=== PATIENT | female | born 1975 | race Caucasian/White ===

== ENCOUNTER → 2017-06-05 15:31 | Outpatient (CLI) | payer BC, SELFPAY ==
--- NOTE | 2017-06-05 15:33 | HPBI_ITS ---
MAMMOGRAPHY - BILATERAL SCREENING REASON FOR EXAM: Female, 42 years old. Routine annual screening examination. PERTINENT HISTORY: Mother with breast cancer. Aunt with breast cancer. TECHNIQUE: Digital bilateral breast manoj (3D mammographic acquisition) in the CC and MLO projections. 2-D mediolateral oblique (MLO) and craniocaudad (CC) views of both breasts were obtained. CAD: Full Field Digital Mammography with Computer Added Detection was performed. COMPARISON: Comparison is made with prior study dated March 17, 2016 and March 05, 2015. FINDINGS: Breast Composition: The breasts are extremely dense, which lowers the sensitivity of mammography. There are no dominant masses or suspicious calcifications. No other significant abnormalities are identified. There has been no significant change since the prior study. HPBI/SCREENING MAMM (CAD), BILAT IMPRESSION: Stable bilateral screening mammogram. Yearly follow-up mammogram recommended. (A) ASSESSMENT CATEGORY: BIRADS Category 1: Negative. A letter regarding these results will be sent to the patient by the facility within 30 days. Approximately 10% of breast cancers are not detected by mammography. A normal mammogram should not delay biopsy of a clinically suspicious abnormality. [id number] Electronically Signed: Keshawn Feldman MD at 8:06 EST Tel [phone], Service support ,
== END ==
PROVIDERS: Family Provider Family Medicine; PCP Family Medicine; Visit Provider Obstetrics & Gynecology
DX: Z12.31 Encounter for screening mammogram for malignant neoplasm of breast (principal)
CPT/HCPCS: 77063; 77067

== ENCOUNTER → 2017-06-05 16:43 | Outpatient (CLI) | payer BC, SELFPAY ==
[2017-06-08 15:53] LABS: HPV Reflexed? NOT INDICATED
== END ==
PROVIDERS: Visit Provider Obstetrics & Gynecology
DX: Z12.4 Encounter for screening for malignant neoplasm of cervix (principal)
CPT/HCPCS: 88175; G0145

== ENCOUNTER → 2018-06-11 13:24 | Outpatient (CLI) | payer BC, SELFPAY ==
[2018-06-13 17:14] LABS: HPV Reflexed? NOT INDICATED
== END ==
PROVIDERS: Visit Provider Obstetrics & Gynecology
DX: Z12.4 Encounter for screening for malignant neoplasm of cervix (principal)
CPT/HCPCS: 88175; G0145

== ENCOUNTER → 2018-07-02 16:17 | Outpatient (CLI) | payer BC, SELFPAY ==
--- NOTE | 2018-07-02 16:22 | BI_ITS ---
MAMMOGRAPHY - BILATERAL SCREENING 3-D MAYA SYNTHESIS REASON FOR EXAM: Female, 43 years old. Bilateral Screening 3-D tomosynthesis PERTINENT HISTORY: Family history of breast cancer in mother and maternal aunt.. TECHNIQUE: 2-D mammograms and 3-D Maya synthesis of the breast (s) were performed. CAD was performed. COMPARISON: June 05, 2017, March 17, 2016 FINDINGS: The breast composition is heterogeneously dense that can obscure small breast masses. Scattered benign calcifications are seen. No dense spiculated masses or suspicious microcalcifications are identified. No architectural distortion is identified. There is no skin thickening or retraction. There has been no significant change since the prior study. BI/SCREENING MAMM (CAD), BILAT IMPRESSION: No mammographic signs of malignancy. Routine yearly mammograms recommended. ASSESSMENT CATEGORY: BIRADS Category 1: Negative. A letter regarding these results will be sent to the patient by the facility within 30 days. FOLLOW UP RECOMMENDATION: Yearly follow up mammogram recommended. (A) Approximately 10% of breast cancers are not detected by mammography. A normal mammogram should not delay biopsy of a clinically suspicious abnormality. Electronically Signed: Harvinder Teixeira MD at 17:42 EDT , Service support ,
== END ==
PROVIDERS: Family Provider Family Medicine; PCP Family Medicine; Referring Provider Obstetrics & Gynecology; Visit Provider Obstetrics & Gynecology
DX: Z12.31 Encounter for screening mammogram for malignant neoplasm of breast (principal)
CPT/HCPCS: 77063; 77067

== ENCOUNTER → 2018-08-31 | Outpatient (CLI) | payer BC, SELFPAY ==
--- NOTE | 2018-08-31 11:35 | RAD_ITS ---
STUDY: X-RAY - LUMBAR SPINE REASON FOR EXAM: Female, 43 years old. Left-sided back pain radiating to the thigh TECHNIQUE: 5 view(s) of the lumbar spine were obtained. COMPARISON: None FINDINGS: Normal lumbar lordosis. There is a levoscoliosis of the lumbar spine. There is a normal alignment of the vertebrae. Normal vertebral bodies and endplates. Mild loss of disc space at L3-L4, L4-L5 and L5-S1. There is no demonstrated fracture. There is no demonstrated spondylolysis of the pars interarticulares. Calcification projects over the right renal shadow suggesting nephrolithiasis. RAD/L/S Spine Min 4 Views IMPRESSION: 1. Mild degenerative disc disease. 2. Right nephrolithiasis Electronically Signed: Tucker Sams MD at 11:31 EDT , Service support ,
== END | disposition home or self-care (01) ==
LOC: MTRAD 11:34
PROVIDERS: Family Provider Family Medicine; PCP Family Medicine; Referring Provider Family Medicine; Visit Provider Family Medicine
DX: M51.16 Intervertebral disc disorders with radiculopathy, lumbar region (principal)
CPT/HCPCS: 72110

== ENCOUNTER 2018-10-04 10:30 | Outpatient (RCR) | payer BC, SELFPAY ==
--- NOTE | 2018-09-05 11:28 | HP.PTEVAL_ITS ---
Patient's Visit Information FATUMA LUNSFORD is a 43 year old F referred to Physical Therapy by Paul Kinsey MD with a diagnosis of Lumbar spine pain. Date of Evaluation: 09/03/18 Physical Therapist: Jesús Morrow DPT - Visit Plan Frequency: 2x /Week Duration: 4 Weeks Plan: Start with REIL progression as tolerated, Possible need for joint mobs with REIL. Add in TA contraction progression in netural spine. May use DN or US. - Subjective Findings: Pt. is here today for her initial evaluation with diagnosis of low back pain. Pt. reprots having increased pain since mar 2018. Pt. reports no mechanism of injury. Pt. reports increased pain at times, but not all the time. Pt. reports increased pain that does radiating into her L thigh at times. She deneis N/T in either LE. 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 Pt. reports no pain with sleeping. Has intermittent increase in symptoms. Pt. is hopeful to reduce symptoms in order to get back to all recreational activities without issues. - Pain L side of lumbar spine Pain Intensity (Out of 10): 3 Pain Intensity Range: 1, 7 - Objective POSTURE: Pt. has slight flexed posture, rounded shoulders, but is able to self correct. PALPATION: Pt. has mild pain at L3-L5, and at L side of SI joint. Mild hypomobility at same segments. NEURO: Pt. has normal sensation of BLEs. Pt. has 2+ bilateral achilles and patellar DTR. ROM: Lumbar ROM: flexion- min loss increase NW, ext- min loss increase NW, SB/rotation- nil loss NE. Hip- ER/IR normal Rom, tight HS and tight hip flexors bilaterally. MMT: Normal throughout, except 4/5 hip abd, 4/5 hip ext and 4/5 hip flexion. COre strength- poor+. GAIT: Pt. ambulates with slight flexed posture, but otherwise normal pattern. - Special Tests L/S Slump test left side: Negative L/S Slump test right side: Negative L/S Left Straight Leg Raise: Negative L/S Right Straight Leg Raise: Negative Lumbar Standing: Flexion - Mechanical Response: No effect Lumbar Standing: Flexion - Symptoms During Testing: No effect Lumbar Standing: Flexion - Symptoms After Testing: No effect Lumbar Standing: Extension - Mechanical Response: Increases motion Lumbar Standing: Extension - Symptoms During Testing: No effect Lumbar Standing: Extension - Symptoms After Testing: No effect - Goals Goal 1:: Pt. to be I with HEP Goal Time Frame: 4-6 Weeks Goal 2:: Pt. to have increased lumabr ROM by 25% in all effected directions without increase in symptoms. Goal Time Frame: 4-6 Weeks Goal 3:: Pt. to complete full workday without increase in symptoms. Goal Time Frame: 4-6 Weeks Goal 4:: Pt. to have increased hip and core strength by 1/2 grade of all effected musculature. Goal Time Frame: 4-6 Weeks Goal 5:: Pt. to sit for upto 30 minutes withotu increase in symptoms. Goal Time Frame: 4-6 Weeks - Rehabilitation Potential Physical Therapy Diagnosis: Pt. has signs and symptoms consistent with low back pain. Pt. reports having some radicular symptoms, but were not reporduced this date. Pt. does have limited lumbar extension both in standing and prone. Pt. has pain at L PSIS region. Pt. did not have any radicular symptoms this date, but reports having them after work. Pt. would benefit from PT to increase her ROM, decrease symptoms and increased core strength. Rehabilitation Potential: Excellent - Anticipated Interventions Patient/Client Instruction: Educate patient on: Condition, Plan of Care, Risk Factors, Benefits of Fitness Program For the Purpose of:: To foster healthy habits, To improve decision making, To facilitate caregiver knowledge, To improve self management, To prevent re- injury, To improve ability to perform tasks related to life management, To im prove tolerance to ADL's Therapeutic Exercise to Include: Strength training, Power training, Endurance training, Postural training, Flexibilty training, Passive ROM, Active ROM, Dynamic Lumbar Stabilization, Addis Exercises For the Purpose of:: To decrease pain, To decrease swelling/inflammation, To increase ROM, To increase oxygenation perfusion, To improve muscle performance and motor function, To increase tolerance to activity/condition/position, To improve health of tissue, To decrease soft tissue restriction, To increase flexibility/ROM, To improve balance, To improve safety with gait Manual Therapy Techniques to Include: Mobilization, Passive ROM, Functional dry needling, Soft tissue mobilization For the Purpose of:: To decrease pain, To decrease swelling/inflammation, To increase ROM, To improve health of tissue, To decrease soft tissue restriction, To increase flexibility/ROM Ultrasound (thermal/non thermal): Yes For the Purpose of:: To decrease pain, To decrease swelling/inflammation, To increase ROM Thank you for the opportunity to evaluate your patient. For Medicare and Medicare HMO plans, please review the plan of care and approve it. It will need to be FAXED BACK to us at [phone] for Medicare purposes. For Medicare only, by signing this I certify the plan of care. Please let me know if there are questions or concerns regarding this plan of care. Physician Signature: Date:
--- NOTE | 2018-10-01 06:51 | HP.PTREVAL_ITS ---
Paul Kinsey MD, It has been my pleasure to treat FATUMA LUNSFORD over the last 9 visits for Lumbar spine pain. Please see the progress note below for an update on the physical therapy plan of care! Subjective: Pt. reports I am feeling a bit better, but still after a long day, my back spasms.. Pt. reports being 70% better overall. Objective/Function: Pt. continues to struggle with muscle control of pelvis, but is improving. Cont. to work on lumbar core stability and muscle control of pelvic stabilizors. Plan Plan: COnt. with x2 per week for 2-3 weeks. Focus on core stability and muscle control. May use modaltiies to reduce symptoms. Goals Goal 1:: Pt. to be I with HEP Goal Time Frame: 4-6 Weeks Goal Progress: Progressing Goal 2:: Pt. to have increased lumabr ROM by 25% in all effected directions without increase in symptoms. Goal Time Frame: 4-6 Weeks Goal Progress: Progressing Goal 3:: Pt. to complete full workday without increase in symptoms. Goal Time Frame: 4-6 Weeks Goal 4:: Pt. to have increased hip and core strength by 1/2 grade of all effected musculature. Goal Time Frame: 4-6 Weeks Goal Progress: Progressing Goal 5:: Pt. to sit for upto 30 minutes withotu increase in symptoms. Goal Time Frame: 4-6 Weeks Goal Progress: Progressing Anticipated Interventions Patient/Client Instruction: Educate patient on: Condition, Plan of Care, Risk Factors, Benefits of Fitness Program For the Purpose of:: To foster healthy habits, To improve decision making, To facilitate caregiver knowledge, To improve self management, To prevent re- injury, To improve ability to perform tasks related to life management, To improve tolerance to ADL's Therapeutic Exercise to Include: Strength training, Power training, Endurance training, Postural training, Flexibilty training, Passive ROM, Active ROM, Dynamic Lumbar Stabilization, Addis Exercises For the Purpose of:: To decrease pain, To decrease swelling/inflammation, To increase ROM, To increase oxygenation perfusion, To improve muscle performance and motor function, To increase tolerance to activity/condition/position, To improve health of tissue, To decrease soft tissue restriction, To increase flexibility/ROM, To improve balance, To improve safety with gait Manual Therapy Techniques to Include: Mobilization, Passive ROM, Functional dry needling, Soft tissue mobilization For the Purpose of:: To decrease pain, To decrease swelling/inflammation, To increase ROM, To improve health of tissue, To decrease soft tissue restriction, To increase flexibility/ROM Ultrasound (thermal/non thermal): Yes For the Purpose of:: To decrease pain, To decrease swelling/inflammation, To increase ROM Please do not hesitate to contact me at [phone] by phone or if you have questions or concerns regarding this new plan of care! Sincerely, NORMA ReedT
== END 2018-10-04 19:00 | disposition home or self-care (01) ==
LOC: PT 10:30
PROVIDERS: Family Provider Family Medicine; PCP Family Medicine; Referring Provider Family Medicine; Visit Provider Family Medicine
DX: M62.830 Muscle spasm of back (principal); M51.16 Intervertebral disc disorders with radiculopathy, lumbar region
CPT/HCPCS: 97035; 97110; 97161

== ENCOUNTER 2018-11-30 16:38 | Emergency (ER) | payer BC, SELFPAY ==
[2018-11-30 16:39] VITALS: BP 129/77; PULSE 76; RESP 17; TEMP 36.4; O2SAT 98; BMI 19.3
--- NOTE | 2018-11-30 17:07 | ED.VISSUMM ---
- ER Visit Summary Date of Service: 11/30/18 Chief Complaint: Paresthesias History of Present Illness: The patient is a 43 F who presents with paresthesias in her upper and lower extremities that have been getting worse over the past few days. Patient states she was recently started on prednisone for her back. Patient states she has tingling in her upper and lower extremities. Patient states she feels drained all over. Patient states nothing makes it better or worse. Patient denies any bowel or bladder changes. Patient denies any saddle anesthesia. Patient admits to generalized myalgias and arthralgias. Physical Examination: Vital signs are stable. Patient is afebrile. Patient is in no acute distress. Oral mucosa is pink and moist. Neck is supple. Trachea is midline. There is no JVD noted. Heart was regular rate and rhythm. Lungs are clear and equal bilaterally. Abdomen is soft and nontender. Cranial nerves II through XII are intact. Strength is 5/5 bilaterally upper and lower extremities. There are no sensory deficits noted. There is good range of motion in all extremities. There is no edema noted. Test Results: CBC and basic metabolic profile were obtained and were essentially within normal limits. Glucose was 156. Emergency Department Course and Treatment: Patient was advised that this may be a side effect of the prednisone. Patient was instructed to follow-up with her primary care physician in 3 to 5 days. Patient understood and was agreeable with the plan. All questions were answered. Disposition: Discharge home Impression: Paresthesias This note was generated with [employer] dictation software. It may contain incorrect words, spelling, and punctuation that were not noted in review of the chart prior to signing ED Disposition - Plan for ED Patient: Disposition: Home or Assisted Living Diagnosis: Paresthesias Instructions: Paraesthesias Referrals: Paul Kinsey MD [Primary Care Provider] - 3-5 Days
[2018-11-30] MEDS: 0.9% Normal Saline 1,000 ML 1000 ML IV (17:19)
[2018-11-30 17:36] LABS: Absolute Lymphocyte Count 0.84 X10^3/uL (0.83-4.51); Absolute Neutrophil Count 6.7 X10^3/uL (2.0-7.7); Basophil# 0.04 X10^3/uL; Basophil% 0.5 % (0-1); Eosinophil# 0.15 X10^3/uL; Eosinophils% 1.9 % (0-5); Hematocrit 40.6 % (37-47); Hemoglobin 13.4 g/dL (12.0-15.0); Lymphocyte # 0.84 X10^3/ul (4.0); Lymphocyte % 10.6 % (19-41); Mean Corpuscular Volume 96.9 fL (81-99); Mean Platelet Vol. 9.8 fl (6.2-12.0); Monocyte# 0.21 X10^3/uL; Monocyte% 2.6 % (0-10); NRBC Flagged by Analyzer 0 % (0-5); Neutrophil # 6.69 X10^3/uL (2.7-7.7); Neutrophil % 84.1 % (47-70); POSITIVE MORPHOLOGY YES; Platelet Count 247 K/mm3 (150-450); RBC Distribution Width CV 12.5 % (11.6-14.6); Red Blood Count 4.19 M/mm3 (4.2-5.4)
[2018-11-30 17:39] LABS: Differential Indicated SCAN CRITERIA MET
[2018-11-30 17:47] LABS: Anion Gap 5 (5-15); BUN 24 mg/dL (7-18); BUN/Creat Ratio 28.9 RATIO (10-20); Calcium,Total 9.2 mg/dL (8.5-10.1); Chloride 107 mmol/L (98-107); Creatinine, Serum 0.83 mg/dL (0.55-1.02); EST Glomerular Filtration Rate 79 mL/min (>60); Est Glom Filt Rate - Afr Amer 95 mL/min (>60); Estimated Creatinine Clearance 73.37 ml/min; Glucose 156 mg/dL (74-106); Potassium 3.7 mmol/L (3.5-5.1); Sodium Level 141 mmol/L (136-145)
[2018-11-30 17:56] LABS: Differential Comment SCANNED
[2018-11-30 18:57] VITALS: BP 127/76; PULSE 84; RESP 18; O2SAT 99
[2018-11-30 19:36] VITALS: BP 122/88; PULSE 79; RESP 16; O2SAT 97
== END 2018-11-30 19:36 | disposition home or self-care (01) ==
PROVIDERS: Emergency Provider Emergency Medicine; Family Provider Family Medicine; PCP Family Medicine
DX: R20.2 Paresthesia of skin (principal); R06.00 Dyspnea, unspecified; R19.7 Diarrhea, unspecified; M54.9 Dorsalgia, unspecified; Z86.2 Personal history of diseases of the blood and blood-forming organs and certain disorders involving the immune mechanism
CPT/HCPCS: 80048; 85025; 96360; 99283; J7030

== ENCOUNTER → 2018-12-06 | Outpatient (CLI) | payer BC, SELFPAY ==
[2018-11-30 16:39] VITALS: BMI 19.3
--- NOTE | 2018-12-06 10:56 | MRI_ITS ---
STUDY: MRI LUMBAR SPINE WITHOUT CONTRAST REASON FOR EXAM: Female, 43 years old. Left leg numbness. Back pain. Spasms. TECHNIQUE: Standardized fat and water weighted pulse sequences were obtained in the sagittal and axial planes. COMPARISON: X-rays dated August 31, 2018 FINDINGS: Levoscoliosis. Mild lumbar straightening. Conus medullaris terminates normally at the L1 level. No acute fracture, dislocation or osseous destruction. T12-L1: Normal endplates. Disc desiccation. Normal bilateral facet joints. Normal central canal and bilateral lateral recesses. Normal bilateral intervertebral neural foramina. L1-2: Normal endplates. Shallow disc bulge without central canal narrowing. Normal bilateral facet joints. Normal central canal and bilateral lateral recesses. Normal bilateral intervertebral neural foramina. L2-3: Normal endplates. Shallow disc bulge without central canal narrowing. Normal bilateral facet joints. Normal central canal and bilateral lateral recesses. Normal bilateral intervertebral neural foramina. L3-4: Normal endplates. Mild disc desiccation. Normal bilateral facet joints. Normal central canal and bilateral lateral recesses. Normal bilateral intervertebral neural foramina. L4-5: Normal endplates. Disc bulge, annular fissure, without central canal narrowing. Mild facet joint arthrosis. Normal central canal and bilateral lateral recesses. Mild neural foraminal narrowing without impingement. L5-S1: Mild/moderate endplate spondylosis with degenerative/reactive edema. Disc bulge, slightly asymmetric to the left, without central canal narrowing. Mild facet joint arthrosis. Left lateral recess narrowing without impingement. Bilateral neuroforamina narrowing with impingement on the left. Sacrum intact. Mild lower paraspinal muscle atrophy. Normal aorta. Normal retroperitoneum. MRI/Spine Lumbar (Routine) IMPRESSION: Multilevel intervertebral disc disease without central canal narrowing Multilevel neural femoral narrowing with impingement of the left exiting L5 nerve root Left lateral recess narrowing without impingement at L5-S1 Levoscoliosis, lumbar straightening and osteoarthritis predominating at L5-S1 Electronically Signed: Adam Smyth DO at 12:50 EDT Tel , Service support ,
== END | disposition home or self-care (01) ==
PROVIDERS: Family Provider Family Medicine; PCP Family Medicine; Referring Provider Family Medicine; Visit Provider Family Medicine
DX: M51.16 Intervertebral disc disorders with radiculopathy, lumbar region (principal)
CPT/HCPCS: 72148

== ENCOUNTER → 2019-09-23 | Outpatient (CLI) | payer BC, SELFPAY ==
--- NOTE | 2019-09-23 13:52 | BI_ITS ---
MAMMOGRAPHY - BILATERAL SCREENING REASON FOR EXAM: Female, 44 years old. Routine annual screening examination. PERTINENT HISTORY: Mother with breast cancer. Aunt with breast cancer. TECHNIQUE: Digital bilateral breast maya (3D mammographic acquisition) in the CC and MLO projections. 2-D mediolateral oblique (MLO) and craniocaudad (CC) views of both breasts were obtained. CAD: Full Field Digital Mammography with Computer Added Detection was performed. COMPARISON: Comparison is made with prior study dated July 02, 2018 and June 05, 2017. FINDINGS: Breast Composition: The breasts are heterogeneously dense, which may obscure small masses. There are no dominant masses or suspicious calcifications. No other significant abnormalities are identified. There has been no significant change since the prior study. BI/SCREEN MAMM (CAD) W/MAYA BILAT IMPRESSION: Stable bilateral screening mammogram. Yearly follow-up mammogram recommended. (A) ASSESSMENT CATEGORY: BIRADS Category 1: Negative. A letter regarding these results will be sent to the patient by the facility within 30 days. Approximately 10% of breast cancers are not detected by mammography. A normal mammogram should not delay biopsy of a clinically suspicious abnormality. [id number] Electronically Signed: Keshawn Feldman, at 15:04 EDT , Service support ,
== END | disposition home or self-care (01) ==
LOC: OPBI 13:50
PROVIDERS: PCP Family Medicine; Referring Provider Obstetrics & Gynecology; Visit Provider Obstetrics & Gynecology
DX: Z12.31 Encounter for screening mammogram for malignant neoplasm of breast (principal)
CPT/HCPCS: 77063; 77067

== ENCOUNTER → 2019-10-10 | Outpatient (CLI) | payer BC, SELFPAY | END | disposition home or self-care (01) | PROVIDERS: PCP Family Medicine; Referring Provider Obstetrics & Gynecology; Visit Provider Obstetrics & Gynecology | DX: R30.0 Dysuria (principal) | CPT/HCPCS: 87086; 87088 ==

== ENCOUNTER → 2019-11-05 | Outpatient (CLI) | payer BC, SELFPAY ==
[2019-11-12 14:09] LABS: Age Gdln ACOG Testing 30-65 (.)
[2019-11-12 15:28] LABS: HPV APTIMA, High Risk Negative (Negative); HPV Reflexed? YES, CHARGE PATIENT
== END | disposition home or self-care (01) ==
LOC: LABSPEC 10:30
PROVIDERS: PCP Family Medicine; Visit Provider Obstetrics & Gynecology
DX: Z12.4 Encounter for screening for malignant neoplasm of cervix (principal)
CPT/HCPCS: 87624; 88175; G0145

== ENCOUNTER → 2020-01-03 | Outpatient (CLI) | payer BC, SELFPAY ==
[2020-01-03 14:11] LABS: Bacteria 0 SEEN /hpf (None Seen); Mucous, Urine 0 SEEN /hpf (<or=2+); Red Blood Cells-Urine 0 SEEN /hpf (0-5); Squamous Epithelial Cells - UA 0 SEEN /hpf (5-10); White Blood Cells 0 SEEN /hpf (0-5)
[2020-01-03 14:14] LABS: Color, Urine Straw (Yellow); Glucose, Dipstick Normal (Normal); Ketone-Dipstick Negative (Negative); Leukocyte Esterase-Dipstick Negative /ul (Negative); Nitrite-Dipstick Negative (Negative); Occult Blood-Urine 250 /ul (Negative); Protein-Dipstick 15 mg/dl (Negative); Urine Bilirubin Dipstick Negative (Negative); Urine Clarity Clear (Clear); Urine Urobilinogen Normal (Normal)
== END | disposition home or self-care (01) ==
LOC: LABSPEC 13:55
PROVIDERS: PCP Family Medicine; Visit Provider Obstetrics & Gynecology
DX: R30.0 Dysuria (principal); R31.9 Hematuria, unspecified
CPT/HCPCS: 81001; 87086; 87088

== ENCOUNTER → 2020-01-09 07:49 | Outpatient (CLI) | payer BC, SELFPAY ==
--- NOTE | 2020-01-09 08:02 | CT_ITS ---
STUDY: CT ABDOMEN AND PELVIS WITH AND WITHOUT CONTRAST REASON FOR EXAM: Female, 44 years old. HEMATURIA X 2.5 DAYS. HX OF KIDNEY STONES. HX OF RADIATION DOSAGE (If Supplied By Facility): CTDIvol = ( 8.19 ) mGy, DLP = ( 1057.80 ) mGycm TECHNIQUE: Transaxial images were obtained from the dome of the diaphragm to the symphysis pubis without oral contrast. IV 100mL Isovue-300 was administered. Sagittal and coronal images were reconstructed. Individualized dose optimization techniques were used for this CT. COMPARISON: Comparison is made with prior study dated 08/08/2011. FINDINGS: The visualized lung bases are unremarkable. Pectus excavatum deformity. The visualized portions of the heart are within normal limits. Normal liver. Low-level densities are seen within the gallbladder lumen suggestive of either sludge or possible small gallstones. 8 mm cyst is seen in the inferior aspect of the right lobe of the liver. Normal spleen. Normal pancreas. Normal bilateral adrenal glands. 5 mm calculus in the midpole calyx of the right kidney. Normal left kidney. Normal visualized stomach. Normal small intestine. Normal colon. The appendix is visualized and appears normal. Normal abdominal aorta. Normal inferior vena cava. Normal retroperitoneum. Normal urinary bladder. Small follicles are seen in both ovaries. Phleboliths are seen within the pelvis. Normal abdominal wall. Spondylosis and disc space narrowing at the L5-S1 level. CT/CT Abd/Pelvis W/WO Contrast IMPRESSION: Small cyst in the inferior aspect of the right lobe of liver. 5 mm calculus in the midpole calyx of the right kidney. Electronically Signed: Keshawn Feldman, at 8:46 EDT , Service support ,
== END ==
PROVIDERS: PCP Family Medicine; Referring Provider Urology; Visit Provider Urology
DX: R31.0 Gross hematuria (principal)
CPT/HCPCS: 74178; Q9967

== ENCOUNTER → 2020-01-10 | Outpatient (CLI) | payer BC, SELFPAY ==
--- NOTE | 2020-01-10 | FLU_PTH ---
PATIENT: FATUMA LUNSFORD LOC: [facility] U#:[id number] AGE/SX: 44/F ROOM: RE01/10/[address]: Dr. Allyssa Hancock MD : 1975 BED: DIS: 01/10/2020 SPEC #: [id number] RECD: 01/10/20 10:44 STATUS: PROSPER ELLIOT #: [id number] DEL: 01/10/20 00:[address]: Allyssa Hancock DEPT: CYTOLOGY RECD BY: Rachael Mcconnell ENTERED: 01/13/20 10:44 SP TYPE: Fluid OTHR DR: Dr. Paul Kinsey MD Tissues: Urine Procedures: Special Stain Group II Cytospin Fluid HEADER OPERATION: Not noted PRE-OP DIAGNOSIS: Gross hematuria TISSUE SUBMITTED: Urine for cytology DIAGNOSIS CYTOLOGY Urine for cytology (cytospin): Negative for malignant cells. AM:santos 01/13/20 COMMENT The specimen primarily contains benign squamous epithelial cells. CYTOLOGY STUDY Slides are reviewed. CYTOLOGY GROSS Received is 60 ml of yellow clear fluid labeled with the patient's name and and designated per the requisition as urine. Submitted for cytology preparation. / santos 01/13/20 TC:5 CPT: 47101
[2020-01-10 17:18] LABS: Cytology, Body Fluid / CSF SEE PATHOLOGY REPORT
== END | disposition home or self-care (01) ==
LOC: LABSPEC 16:03
PROVIDERS: PCP Family Medicine; Referring Provider Urology; Visit Provider Urology
DX: R31.0 Gross hematuria (principal)
CPT/HCPCS: 88108; 88313

== ENCOUNTER 2020-01-17 08:39 | Day surgery (SDC) | payer BC, SELFPAY ==
[2020-01-17 09:13] VITALS: BP 130/86; PULSE 76; RESP 16; TEMP 37.6; O2SAT 100; BMI 19.5
[2020-01-17 09:13] LABS: Internal QC Validated? YES +Cl - CLEAR BKGD; Pregnancy, Urine Negative Negative
[2020-01-17] MEDS: Lactated Ringers 1,000 ML 100 ML IV (09:27)
--- NOTE | 2020-01-17 09:43 | PCM.HP.STD ---
Problem List (1) Right renal stone Status: Acute History of Present Illness Date of Admission: 01/17/20 Chief Complaint: right renal stone, hematuria The patient is a 44 year old F [who was found to have a 6 mm right renal calculus on evaluation for gross hematuria. She now presents for definitive treatment of her calculus with extracorporal shockwave lithotripsy. Informed consent was obtained after full discussion of risks, benefits, alternatives and including a discussion of COVID-19.] Past Medical History Allergies No Known Allergies Allergy (Verified 01/17/20 09:10) Home Medications: Ambulatory Orders Medication Instructions Recorded Multivitamin with Iron [One Daily 1 each PO DAILY 02/18/16 Plus Iron] Docusate Sodium [Colace] 100 mg PO BID 01/13/20 Smoking Status: Former smoker Tobacco Use: Non-smoker Review of Systems Constitutional: Denies: Anorexia, Chills, Fever Eyes: Denies: Vision Change HEENT: Denies: Visual Changes Cardiovascular: Denies: Chest Pain, Chest Pressure Respiratory: Denies: Cough, Shortness of Breath Gastrointestinal: Denies: Abdominal Pain, Nausea, Vomiting Genitourinary: Reports: Hematuria. Denies: Dysuria, Frequency Gynecological: Denies: Vaginal itching Musculoskeletal: Denies: Muscle pain Skin: Denies: Wounds Neurological: Denies: Seizures Endocrine: Denies: Change in Body Habitus VTE Information - Inpt Only VTE Present on Admission: Yes VTE Mechan Device Prophylaxis: SCD's VTE Pharm Prophylaxis ordered?: No Reason prophylaxis not ordered:: Treatment Not Indicated Patient Problems: Active and Suspected Problems Right renal stone (Acute) - Physical Exam Vitals/I&O's: Vital Signs Temp Pulse Resp BP Pulse Ox 99.7 F H 76 16 130/86 H 100 01/17/20 09:13 01/17/20 09:13 01/17/20 09:13 01/17/20 09:13 01/17/20 09:13 Oxygen Delivery Method Room Air Weight: 56.6 kg Body Mass Index (BMI) 19.5 General: Alert, Oriented x3, Cooperative, No apparent distress HEENT: Atraumatic, Normocephalic Oral: Moist Mucosa Neck: Supple, Trachea Midline Lungs: Normal air movement Cardiovascular: Regular rate, Regular Rhythm Abdomen: Soft, Non Tender Extremities: No clubbing, No edema Skin: No rashes Musculoskeletal: No Muscle Wasting Neurological: Cranial nerves II-XII grossly intact, Neuro grossly intact Psych/Mental Status: Normal Affect, Alert and oriented to time, place, person, mood and affect Laboratory Results 01/17/20 09:00: Urine Test Negative Current Medications Cefazolin Sodium 2 gm/ Sodium (Chloride) 110 mls @ 150 mls/hr IV PREOP ONE Stop: 01/17/20 10:53 Lactated Ringer's () 1,000 mls @ 100 mls/hr IV .Q10H KACIE Last Admin: 01/17/20 09:27 Dose: 100 mls/hr Documented by: Assessment/Plan All Active Problems Right renal stone (Acute) Right renal extracorporal shockwave lithotripsy Procedure Criteria Procedure Type: Elective COVID Risk Discussion: The surgeon/proceduralist and patient have discussed in detail the risk of exposure to and/or potential harm posed by the COVID-19 virus with having a surgery/procedure at this time versus the risk of delaying the surgery/procedure. It is not possible to know either the risk of delaying the surgery or procedure or chance of getting an infection with perfect accuracy, but a joint decision was made between the patient and the surgeon/proceduralist to proceed at this time with the scheduled surgery/procedure as indicated on the consent form.
--- NOTE | 2020-01-17 09:46 | PCM.OPRPT ---
Problem List (1) Right renal stone Status: Acute Report of Operation Date of Procedure: 01/17/20 Pre-Operative Diagnosis: Right renal calculus, gross hematuria Post-Operative Diagnosis: Same Surgery/Procedure Performed:: Right renal extracorporal shockwave lithotripsy Type of Anesthesia:: General Specimen's removed: None Description of Procedure: The patient is a 44-year-old female with gross hematuria found to have a renal calculus on evaluation. She now presents for definitive treatment via extracorporeal shockwave lithotripsy. Informed consent was obtained after discussing the risk benefits and alternatives including the risk of COVID-19. The patient was taken to the operating room and placed on the operating room table. Anesthesia monitored the head, neck, airway, IV access and vital signs throughout the case. Once anesthesia was appropriately administered, the patient was aligned with the lithotripter using fluoroscopy. The stone was easily identified. 3000 shocks were applied to the stone which appeared to be well fragmented at the conclusion of the case. The patient was then awakened and taken to the recovery room in good condition. There were no complications during the procedure. Grafts/Implants Used: None - Complications None - Admit VTE Documentation VTE Present on Admission: Yes VTE Mechan Device Prophylaxis: SCD's VTE Pharm Prophylaxis ordered?: No Reason prophylaxis not ordered:: Treatment Not Indicated
--- NOTE | 2020-01-17 09:50 | PCM.DC.URO ---
Discharge Diet: No Restrictions Discharge Activity: Return to Normal Activity, May not drive while taking narcotic pain medications., May Shower May resume sexual activity in: No Restrictions Call your doctor if you observe: Fever of 101 or Higher, Inability to urinate, Inability to have a bowel movement Allergies/Adverse Reactions: Allergies No Known Allergies Allergy (Verified 01/17/20 09:10) Medications to take at Discharge Multivitamin with Iron [One Daily Plus Iron] 1 each PO DAILY 02/18/16 Docusate Sodium [Colace] 100 mg PO BID 01/13/20 Cephalexin [Keflex] 500 mg PO Q12 3 Days #6 cap 01/17/20 Oxycodone HCl/Acetaminophen [Percocet 5/325] 2 tablet PO Q8H PRN PRN 7 Days #20 tablet 01/17/20 Phenazopyridine HCl [Pyridium] 200 mg PO TID PRN PRN 7 Days #30 tab 01/17/20 The following prescriptions were given: Cephalexin [Keflex] 500 mg PO Q12 3 Days #6 cap Transmission Status: Pending to [facility] Oxycodone HCl/Acetaminophen [Percocet 5/325] 2 tablet PO Q8H PRN PRN 7 Days #20 tablet PRN Reason: Pain Transmission Status: Sent to [facility] Phenazopyridine HCl [Pyridium] 200 mg PO TID PRN PRN 7 Days #30 tab PRN Reason: Bladder Spasms Transmission Status: Pending to [facility] Primary Care Physician: Paul Kinsey MD [Primary Care Provider] - Test Results: Test results from this visit will be discussed in further detail at your follow-up appointment, if applicable. Please Follow Up With: Allyssa Hancock MD When: call office for appt, KUB and appt in 2-3 weeks Proposed Discharge Date: 01/17/20
[2020-01-17] MEDS: Cefazolin 2 GM in 0.9% Normal Saline 100 ML IV (09:59)
[2020-01-17 10:46] VITALS: BP 107/65; BP 130/86; PULSE 62; RESP 16; TEMP 36.2; O2SAT 97
[2020-01-17 10:50] VITALS: BP 130/86
[2020-01-17 11:03] VITALS: BP 101/68; BP 130/86; PULSE 63; RESP 16; O2SAT 100
[2020-01-17 11:14] VITALS: BP 120/85; BP 130/86; PULSE 74; RESP 18; TEMP 36.4; O2SAT 100
[2020-01-17 12:51] VITALS: BP 130/86; BP 131/86; PULSE 81; RESP 16; TEMP 36.8; O2SAT 100
== END 2020-01-17 12:56 | disposition home or self-care (01) ==
LOC: SDC 08:39 → AC 08:41
PROVIDERS: Anesthesiology; PCP Family Medicine; Referring Provider Urology; Visit Provider Urology
PROC: (CPT 50590; principal; 2020-01-17 10:00)
DX: N20.0 Calculus of kidney (principal); R31.0 Gross hematuria; Z11.59 Encounter for screening for other viral diseases; F41.9 Anxiety disorder, unspecified; Z87.891 Personal history of nicotine dependence
CPT/HCPCS: 50590; 81025; 87635; C9803; J7120; J2405; U0003

== ENCOUNTER → 2020-02-03 12:37 | Outpatient (CLI) | payer BC, SELFPAY ==
[2020-01-17 09:13] VITALS: BMI 19.5
--- NOTE | 2020-02-03 12:39 | RAD_ITS ---
HISTORY: kidney calc EXAM: KUB COMPARISON: CT scan of the abdomen and pelvis from January 09, 2020 FINDINGS: # of images incl. paperwork: 1 Levoscoliosis remains. Within the inferior pole of the right kidney, as was seen on the CT scan, there is a 6 mm stone. It has not changed in position. Pelvic phleboliths remain. No free air is perceived. No dilated or loops of bowel are seen. There is no mass or suspicious calcification. No evidence of obstruction. RAD/Abdomen Single View IMPRESSION: 6 mm calcification superimposed over the right renal shadow consistent with a nonobstructing nephrolith seen on the recent CT. at 0548 Reported and signed by: Jasiel Naqvi MD Electronically Signed: Jasiel Naqvi MD at 5:47 EDT Tel , Service support ,
== END ==
PROVIDERS: PCP Family Medicine; Referring Provider Urology; Visit Provider Urology
DX: N20.0 Calculus of kidney (principal)
CPT/HCPCS: 74018

== ENCOUNTER → 2020-09-08 | Outpatient (CLI) | payer BC, SELFPAY | END | disposition home or self-care (01) | LOC: LABSPEC 11:59 | PROVIDERS: PCP Family Medicine; Visit Provider Obstetrics & Gynecology | DX: R35.0 Frequency of micturition (principal) | CPT/HCPCS: 87086; 87088 ==

== ENCOUNTER → 2021-01-25 | Outpatient (CLI) | payer BC, SELFPAY ==
[2021-01-28 16:30] LABS: HPV APTIMA, High Risk Negative (Negative)
== END | disposition home or self-care (01) ==
LOC: LABSPEC 01-26 09:00
PROVIDERS: PCP Family Medicine; Visit Provider Student in an Organized Health Care Education/Training Program
DX: Z12.4 Encounter for screening for malignant neoplasm of cervix (principal)
CPT/HCPCS: 87624; 88175; G0145

== ENCOUNTER → 2021-04-07 | Outpatient (CLI) | payer BC, SELFPAY | END | disposition home or self-care (01) | LOC: LABSPEC 13:36 | PROVIDERS: PCP Family Medicine; Visit Provider Obstetrics & Gynecology | DX: R30.0 Dysuria (principal); R31.9 Hematuria, unspecified | CPT/HCPCS: 87086; 87088 ==

== ENCOUNTER 2021-04-23 13:40 | Outpatient (CLI) | payer BC, SELFPAY | END 2021-04-23 23:59 | disposition short-term general hospital (02) | LOC: LABSPEC 13:40 | PROVIDERS: PCP Family Medicine; Referring Provider Physician Assistant Surgical; Visit Provider Physician Assistant Surgical | DX: U07.1 COVID-19 (principal) | CPT/HCPCS: 87635; U0003; U0005 ==

== ENCOUNTER 2021-06-08 10:59 | Outpatient (CLI) | payer BC, SELFPAY ==
--- NOTE | 2021-06-08 11:00 | RAD_ITS ---
STUDY: X-RAY - LEFT FOOT CLINICAL: Female, 46 years old. Left foot injury. TECHNIQUE: 3 view(s) of the foot. COMPARISON: None. FINDINGS: Normal talus, calcaneus, and tarsal bones. Normal visualized subtalar, talonavicular, calcaneocuboid, tarsal and tarsometatarsal articulations. Nondisplaced oblique fracture of the midshaft of the fifth metatarsal. Normal metatarsophalangeal joint of the great toe. Normal tibial and fibular sesamoid bones. Normal interphalangeal joint of the great toe. Normal phalanges of the great toe. Normal second through fifth metatarsophalangeal joints. Normal interphalangeal joints and phalanges of the lesser toes. Soft tissue swelling. RAD/Foot min 3 Views IMPRESSION: Nondisplaced fracture through the midshaft of the fifth metatarsal with overlying soft tissue swelling. Electronically Signed: Keshawn Feldman MD at 11:54 EST ,
== END 2021-06-08 23:59 | disposition home or self-care (01) ==
LOC: MTRAD 11:00
PROVIDERS: PCP Family Medicine; Referring Provider Physician Assistant Surgical; Visit Provider Physician Assistant Surgical
DX: S96.912A Strain of unspecified muscle and tendon at ankle and foot level, left foot, initial encounter (principal)
CPT/HCPCS: 73630

== ENCOUNTER 2021-07-07 14:15 | Outpatient (CLI) | payer BC, SELFPAY ==
--- NOTE | 2021-07-07 14:17 | RAD_ITS ---
STUDY: WEIGHTBEARING LEFT FOOT X-RAY SERIES OF 1428 HOURS ON 07/07/2021 CLINICAL: 46-year-old female with left foot pain. TECHNIQUE: 3. view(s) of the foot. COMPARISON: 06/08/2021. In that study, there is a nondisplaced spiral fracture of the fifth metatarsal. FINDINGS: Then, there were findings of a spiral fracture of the fifth metatarsal--relatively unchanged in appearance since the previous study of 06/08/2021. There is no evidence of significant callus formation. Mild adjacent soft tissue swelling remains. There is no evidence of other fractures or dislocations. No osseous lytic, sclerotic or mass lesions are evident. A very small calcaneal spur is present. RAD/Foot min 3 Views IMPRESSION: 1. Again, there are findings of a spiral fracture of the left fifth metatarsal--relatively unchanged in appearance since the previous study of 06/08/2021. 2. No evidence of significant callus formation at the fifth metatarsal spiral fracture site and mild adjacent soft tissue swelling remains. 3. No evidence of other fractures or dislocations. 4. Very small calcaneal spur. Electronically Signed: Victorino Barrientos MD at 1:32 EDT ,
== END 2021-07-07 23:59 | disposition home or self-care (01) ==
LOC: MTRAD 14:16
PROVIDERS: PCP Family Medicine; Referring Provider Podiatrist; Visit Provider Podiatrist
DX: S92.302D Fracture of unspecified metatarsal bone(s), left foot, subsequent encounter for fracture with routine healing (principal)
CPT/HCPCS: 73630

== ENCOUNTER 2021-08-04 11:39 | Outpatient (CLI) | payer BC, SELFPAY ==
--- NOTE | 2021-08-04 11:42 | RAD_ITS ---
EXAM: XR LEFT FOOT COMPLETE, 3 OR MORE VIEWS CLINICAL INDICATION: PAIN. Fracture TECHNIQUE: Frontal, lateral and oblique views of the left foot. This report was created using [employer] report generation technology. COMPARISON: Jul 07 2021 2:27pm FINDINGS: BONES/JOINTS: There is a spiral fracture of the left fifth metatarsal bone. It is unchanged in appearance. There is no evidence for osseous union. There is an enthesophyte involving the posterior superior calcaneus at the site of insertion of the Achilles tendon. There is a calcaneal spur. Preservation of the joint space. No sclerotic or destructive changes observed. SOFT TISSUES: Soft tissue swelling around the lateral aspect of the foot. No radiopaque foreign body. RAD/Foot min 3 Views IMPRESSION: 1. Soft tissue swelling around the lateral aspect of the foot. 2. There is a spiral fracture of the left fifth metatarsal bone. It is unchanged in appearance. There is no evidence for osseous union. Electronically Signed: Chris Singh MD at 15:35 EDT ,
== END 2021-08-04 23:59 | disposition home or self-care (01) ==
LOC: MTRAD 11:40
PROVIDERS: PCP Family Medicine; Referring Provider Podiatrist; Visit Provider Podiatrist
DX: S92.302A Fracture of unspecified metatarsal bone(s), left foot, initial encounter for closed fracture (principal)
CPT/HCPCS: 73630

== ENCOUNTER → 2021-09-14 | Outpatient (CLI) | payer BC, SELFPAY ==
--- NOTE | 2021-09-14 16:00 | MRI_ITS ---
EXAM: MR LEFT LOWER EXTREMITY WITHOUT INTRAVENOUS CONTRAST, FOOT CLINICAL INDICATION: LEFT FOOT pain, fx 5th MT left foot, pain between 3rd and 4th toe TECHNIQUE: Multiplanar and multisequence MR images of the left foot without intravenous contrast. This report was created using [employer] report generation technology. COMPARISON: 08/04/2021 radiography. FINDINGS: LIGAMENTS: MEDIAL COLLATERAL: Unremarkable. Intact. LATERAL COLLATERAL: Unremarkable. Intact. LISFRANC: Unremarkable. Intact. TENDONS: FLEXOR: Unremarkable. Intact. EXTENSOR: Unremarkable. Intact. PERONEAL: Unremarkable. Intact. TIBIALIS ANTERIOR: Unremarkable. Intact. TIBIALIS POSTERIOR: Unremarkable. Intact. MUSCLES: Unremarkable. No edema or myositis. FLUID: No masses or fluid collections. PLANTAR FASCIA: Unremarkable. Intact. BONES/JOINTS: Subacute nondisplaced fracture involving the left fifth metatarsal. Question small ganglion cyst at the dorsal aspect of the first distal phalanx. Mild degenerative changes of the first metatarsophalangeal joint without significant hallux deformity. Normal forefoot alignment. No bone marrow edema. No joint effusion. OTHER SOFT TISSUES: Unremarkable. MRI/Lower Ext/No Jt/w/o IMPRESSION: Subacute nondisplaced fracture involving the left fifth metatarsal. Electronically Signed: Bairon Stacy MD at 17:21 EDT ,
== END | disposition home or self-care (01) ==
PROVIDERS: PCP Family Medicine; Visit Provider Podiatrist
DX: S92.302G Fracture of unspecified metatarsal bone(s), left foot, subsequent encounter for fracture with delayed healing (principal)
CPT/HCPCS: 73718